=== PATIENT | female | born 1955 | race Caucasian/White ===

== ENCOUNTER → 2017-01-25 | Outpatient (CLI) | payer OTHER | LOC: FIMAGING 10:53 | PROVIDERS: ATTEND Internal Medicine | DX: S09.90XA Unspecified injury of head, initial encounter (principal); G35 Multiple sclerosis ==

== ENCOUNTER 2017-11-10 16:13 | Emergency (ER) | payer OTHER ==
--- NOTE | 2017-11-10 16:39 | EDPHY ---
H & P Time Seen by Provider: 11/10/17 16:26 HPI/ROS: Chief complaint. Swollen, painful leg HPI. 62-year-old female presents emergency department with tender varicose vein that swollen in the left upper thigh. Symptoms have been present for 1 week and seemed to be gradually progressing. Possible injury as she works at [employer] and possibly had been hit by a cart though does not really recollect the injury. She has a history of varicose veins however they are not normally tender and swollen as this is on presentation today. She has no symptoms below her knee. There is no calf swelling or pain. She has no chest discomfort or trouble breathing. She has never had a DVT. Patient has been using ice and Aleve for the discomfort. ROS 10 systems were reviewed and negative with the exception of the elements mentioned in the history of present illness Past Medical/Surgical History: MS and varicose veins Social History: , nonsmoker, no alcohol Smoking Status: Unknown if ever smoked Physical Exam: General Appearance: Alert well-developed female mild distress vital signs are stable Eyes: Pupils equal and round no pallor or injection. ENT, Mouth: Mucous membranes are moist. Respiratory: There are no retractions, lungs are clear to auscultation. Cardiovascular: Regular rate and rhythm. Gastrointestinal: Abdomen is soft and nontender, no masses, bowel sounds normal. Neurological: Awake and alert, sensory and motor exams grossly normal. Skin: Warm and dry, no rashes. Musculoskeletal: Neck is supple nontender. Extremities inflamed, tender, cord like varicose vein in the inner left upper thigh. Knee, calf, ankle or normal Psychiatric: Patient is oriented X 3, there is no agitation. Constitutional: Initial Vital Signs Heart Rate 88 11/10/17 16:20 Respiratory Rate 16 11/10/17 16:20 Blood Pressure 102/74 11/10/17 16:20 O2 Sat (%) 95 11/10/17 16:20 O2 Delivery Mode Room Air Allergies/Adverse Reactions: No Known Allergies Allergy (Verified 11/10/17 16:29) Home Medications: Medication Instructions Recorded NK [No Known Home Meds] 11/10/17 Medical Decision Making - Diagnostics Imaging Results: Imaging Impressions Extremity Venous Study 11/10/17 16:46 Impression: Superficial thrombophlebitis of large varicose veins. No deep venous thrombus. Findings and recommendations discussed with CHRIS STONE at 1743 hour, 2017. A test result has been communicated to a licensed care provider and documented in the [facility] Result system on 11/10/2017 17:43, Message ID [id number]. Ultrasound reviewed by me and discussed with Radiology shows superficial thrombophlebitis of large varicose veins but no evidence for DVT ED Course/Re-evaluation: Re-evaluation 5:55 p.m.. Patient is stable. Patient and I discussed imaging study results, treatment plan including criteria for return importance of follow -up further evaluation. She expresses understanding and agreement Differential Diagnosis: I considered superficial phlebitis, thrombophlebitis, DVT Departure - Departure Disposition: Home, Routine, Self-Care Clinical Impression: Thrombophlebitis Condition: Good Instructions: Superficial Thrombophlebitis (ED) Additional Instructions: Keep leg elevated as much as possible when at rest for the next 3-4 days. Try to continue regular activity . Warm compresses 3-4 times daily to the sore area Continue Aleve or ibuprofen Return for worsening symptoms. Re-evaluation in 3-4 days if not improved Referrals: Mushtaq Mann MD [Primary Care Provider] - 3-4 days, if not improved
[2017-11-10 18:25] VITALS: BP 108/66
== END 2017-11-10 18:11 | disposition home or self-care (01) ==
LOC: CED 16:13
DX: I80.02 Phlebitis and thrombophlebitis of superficial vessels of left lower extremity (principal); I83.812 Varicose veins of left lower extremity with pain
CPT/HCPCS: 93971-PO